=== PATIENT | female | born 2005 | race Caucasian/White ===

== ENCOUNTER 2025-04-15 04:15 | Emergency (ER) | payer SELFPAY | END 2025-04-15 06:31 | disposition home or self-care (01) | LOC: CSHERS 04:15 | DX: F10.129 Alcohol abuse with intoxication, unspecified (principal); F41.0 Panic disorder [episodic paroxysmal anxiety]; Y90.9 Presence of alcohol in blood, level not specified | CPT/HCPCS: 99284 ==